=== PATIENT | male | born 1985 | race Caucasian/White ===

== ENCOUNTER → 2021-06-26 | Outpatient (CLI) | payer BC ==
[~2021-06-26] MED LIST: ESCI20TA2 PO
--- NOTE | 2021-06-26 14:33 | Diagnostic Imaging Report ---
PROCEDURE: US Scrotum. TECHNIQUE: Multiple Real-time grayscale images were obtained over the scrotum in various projections bilaterally. INDICATION: Lump of the right testicle. COMPARISON: None available. FINDINGS: The right testicle measures 5.9 x 2.1 x 3.5 cm and demonstrates normal echogenicity without mass or calcifications. Normal blood flow is present throughout the right testicle. Within the head of the epididymis, there is a cluster of simple cysts with the largest measuring 1.5 x 1.3 x 1.9 cm. No hydrocele or varicocele. The left testicle measures 5.0 x 2.5 x 3.1 cm. The left testicle has normal echogenicity without mass or microcalcifications. Blood flow is present throughout the left testicle by color Doppler and spectral Doppler imaging. There are a few small cysts within the head of the left epididymis with the largest measuring 1.0 x 0.7 cm. No hydrocele or varicocele. IMPRESSION: 1. No testicular mass on either side. 2. Bilateral epididymal head cysts are larger on the right and could be a source of palpable lump. Dictated by: Dictated on workstation # [id number]
== END ==
LOC: RAD 13:30
DX: N50.3 Cyst of epididymis (principal)
CPT/HCPCS: 76870

== ENCOUNTER → 2023-09-24 | Outpatient (CLI) | payer BC ==
--- NOTE | 2023-09-24 16:43 | Diagnostic Imaging Report ---
PROCEDURE: US Scrotum. TECHNIQUE: Multiple real-time grayscale images were obtained over the scrotum in various projections bilaterally. INDICATION: Spermatocele COMPARISON: 06/26/2021 There is normal blood flow to both testes. Testes are symmetric with right measuring 5.6 x 2.3 x 2.6 cm and the left measuring 5.4 x 2.8 x 2.8 cm. There is no evidence of hydrocele or varicocele. No scrotal hernia is identified. Several cystic areas are present in the right epididymis measuring up to 2.9 x 1.3 cm with similar findings on the left measuring up to 2.0 x 1.9 cm. There has been mild increase in volume of the cystic regions compared to prior study. IMPRESSION: Minimal change in the ultrasound appearance of the scrotum apart from mild increasing size of bilateral epididymal head cysts or spermatoceles similar to previous study. Dictated by: Dictated on workstation # [id number]
== END ==
LOC: RAD 14:49
PROVIDERS: ATTEND Specialist
DX: N43.42 Spermatocele of epididymis, multiple (principal)
CPT/HCPCS: 76870